=== PATIENT | female | born 1955 | race Caucasian/White ===

== ENCOUNTER → 2022-03-20 | Outpatient (CLI) | payer MEDICARE ==
[~2022-03-20] MED LIST: CATHETER FLUSH 10 ML SYR IVP PRN; REGADENOSON 0.4 MG/5 ML SYR (LEXISCAN) IV ONE
[2022-03-20 13:06] VITALS: BP 156/84
--- NOTE | 2022-03-21 13:07 | NUCLEAR STRESS TEST ---
REGADENOSON NUCLEAR STRESS Date of procedure: 03/20/2022. Primary care provider: Unknown Admitting physician: Paul Lucero Jr., MD. INDICATION: Left bundle branch block. BASELINE ELECTROCARDIOGRAM: Sinus rhythm with left bundle branch block. STRESS TEST PROCEDURE: The patient was administered 0.4 mg of intravenous Regadenoson. The resting heart rate was 82 bpm and the peak heart rate was 120 bpm. The resting blood pressure was 156/74 mmHg and the minimum blood pressure was 147/89 mmHg. This represents a normal heart rate and a normal blood pressure response to Regadenoson. The test was stopped due to the protocol. There was no chest discomfort during the test. There were no arrhythmias during the test. The stress electrocardiogram was indeterminate due to the left bundle branch block. NUCLEAR PROCEDURE: The patient was administered 10.6 mCi of intravenous technetium 99m Tetrofosmin at rest for the rest images. The patient was subsequently administered 31.8 mCi of intravenous technetium 99m Tetrofosmin at peak stress for the stress images. Following an appropriate wait after each injection, imaging was obtained. The images were subsequently processed and reformatted in the usual views. Gated imaging was obtained. The image quality was adequate with a mild degree of gastrointestinal attenuation artifact. CT attenuation correction was used as a adjunct to standard imaging. Both the corrected and uncorrected images were reviewed for interpretation. NUCLEAR RESULTS: There was a moderate sized, moderate intensity, fixed septal defect with no evidence of inducible ischemia. There was normal left ventricular chamber size with an end-diastolic volume of 44 mL and an end- systolic volume of 11 mL. There was no evidence of transient ischemic dilatation. The TID ratio was 1.09. There was paradoxical septal motion and a calculated ejection fraction of 75%. IMPRESSION: 1. Normal heart rate and blood pressure response to regadenoson. 2. There was no chest discomfort or arrhythmias during the test. 3. The stress electrocardiogram was indeterminate due to the left bundle branch block. 4. There was a moderate sized, moderate intensity, fixed septal defect with no evidence of inducible ischemia. 5. There was paradoxical septal motion and a calculated ejection fraction of 75%. 6. This is an abnormal result although represents a low risk for possible futu re coronary ischemic events. Certain portions of this document may have been dictated utilizing voice recognition technology. Inherent to this technology, typographical and grammatical errors may exist. As much as I am diligent to identify and correct these mistakes, some errors may remain in the document. PAUL LUCERO JR, MD March 21, 2022 13:07
== END ==
LOC: CARD 11:00
PROVIDERS: ATTEND Internal Medicine Cardiovascular Disease
DX: I35.8 Other nonrheumatic aortic valve disorders (principal); I44.7 Left bundle-branch block, unspecified
CPT/HCPCS: 78452; 93017; 93306; A9502